=== PATIENT | male | born 1970 | race Caucasian/White ===

== ENCOUNTER 2018-08-14 11:42 | Emergency (ER) | payer OTHER ==
--- NOTE | 2018-08-14 12:58 | XRAY Report ---
Reason: trip backwards with fall Procedure Date: 08/14/2018 Accession Number: [id number] / [id number] Procedure: XR - Sacrum/Coccyx CPT Code: FULL RESULT: EXAM: SACRUM AND COCCYX RADIOGRAPHY EXAM DATE: 08/14/2018 12:45 PM. HISTORY: Trip backwards with fall. COMPARISONS: None. TECHNIQUE: 2 views. FINDINGS: Alignment: No dislocation. Expected segmentation of the coccyx. Pelvic ring appears intact. Arcuate lines are intact. Grade 1/2 anterolisthesis of L5 and S1. Bones: Focal angulation of the lower sacrum above the sacrococcygeal junction is noted. Findings may represent a fracture along the S4/S5 segment. L5 pars interarticularis defects. Joints: Mild degenerative changes. Degenerative changes of the lower lumbar spine greatest at L5-S1. Soft Tissues: Unremarkable. IMPRESSION: 1. Focal angulation of the lower sacrum at approximately S4/S5 segment. Findings may represent variant anatomy versus nondisplaced fracture. If further detail is warranted then consider CT or MRI. [facility]
--- NOTE | 2018-08-14 13:40 | ED Physician Documentation ---
PD HPI BACK INJURY - Stated complaint Stated Complaint: LOWER BACK PX - History obtained from History obtained from: Patient - History of Present Illness Location: Lower Type of injury: Fall Where injury occurred: Work Timing - onset: How many days ago (3) Timing - duration: Days (3) Timing - details: Abrupt onset, Still present Quality: Pain, Spasm, Sharp Improved by: Rest, Immobilization Worsened by: No: Moving, Palpating Associated symptoms: No: Fever, Weakness, Numbness, Incontinent of urine, Unable to urinate, Hematuria, Incontinent of stool Contributing factors: No: Anticoagulated Similar symptoms before: Has not had sx before Recently seen: Not recently seen - Additional information Additional information: 48-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 He heard a crack and he has pain in the buttocks and is not able to sit without severe pain. Review of Systems Constitutional: denies: Fever Eyes: denies: Decreased vision Ears: denies: Ear pain Nose: denies: Congestion Throat: denies: Sore throat Cardiac: denies: Chest pain / pressure Respiratory: denies: Dyspnea, Cough GI: denies: Abdominal Pain, Nausea, Vomiting : denies: Dysuria PD PAST MEDICAL HISTORY - Past Medical History Cardiovascular: Deep vein thrombosis - Past Surgical History Past Surgical History: No - Present Medications Home Medications: Ambulatory Orders Medication Instructions Recorded Confirmed Methocarbamol [Robaxin] 750 mg PO Q6H PRN #25 tablet 11/11/14 Oxycodone HCl/Acetaminophen 1 - 2 each PO Q6H PRN #14 tablet 08/14/18 [Percocet 5-325 mg Tablet] - Allergies Allergies/Adverse Reactions: Allergies Allergy/AdvReac Type Severity Reaction Status Date / Time No Known Drug Allergies Allergy Verified 08/14/18 11:50 - Social History Does the pt smoke?: No Smoking Status: Never smoker Does the pt drink ETOH?: Yes - POLST Patient has POLST: No PD ED PE NORMAL - Vitals Vital signs reviewed: Yes - General General: Alert and oriented X 3, No acute distress, Well developed/nourished - HEENT HEENT: Atraumatic, PERRL, EOMI - Neck Neck: Supple, no meningeal sign - Respiratory Respiratory: No respiratory distress - Back Back: No CVA TTP, Other (There is paraspinous point tenderness to the lower lumbar spine and there is point tenderness to the sacrum and coccyx. ) - Derm Derm: Normal color, Warm and dry, No rash - Extremities Extremities: No deformity, No edema - Neuro Neuro: Alert and oriented X 3, manager etl 2-12 intact, No motor deficit, No sensory deficit, Normal speech Eye Opening: Spontaneous Motor: Obeys Commands Verbal: Oriented GCS Score: 15 - Psych Psych: Normal mood, Normal affect Results - Vitals Vitals: Vital Signs - 24 hr 08/14/18 11:48 Temperature 36.2 C L Heart Rate 89 Respiratory 14 Rate Blood Pressure 149/100 H O2 Saturation 95 Oxygen O2 Source Room air - Rads (name of study) sacrum and coccyx Radiology: Prelim report reviewed (Impression: 1. Focal angulation of the lower sacrum to approximately S4-S5 segment. Findings may represent variant anatomy versus nondisplaced fracture. If further details warranted then consider CT or MRI.), EMP read indepedently, See rad report PD MEDICAL DECISION MAKING - ED course Complexity details: reviewed results, re-evaluated patient, considered differential, d/w patient ED course: 48-year-old male with a fall onto his buttocks has a coccyx fracture he has some pain with especially when he is sitting. I have taken him off work for 1 week we will give him some pain medication and he will follow-up with orthopedics. Departure - Departure Disposition: 01 Home, Self Care Clinical Impression: Fractured coccyx Qualifiers: Encounter type: initial encounter Fracture type: closed Qualified Code(s): S32.2XXA - Fracture of coccyx, initial encounter for closed fracture Condition: Stable Instructions: ED Fx Coccyx Follow-Up: NERY WHITE MD [Primary Care Provider] - Prescriptions: Oxycodone HCl/Acetaminophen [Percocet 5-325 mg Tablet] 1 - 2 each PO Q6H PRN #14 tablet PRN Reason: pain Forms: Activity restrictions
[2018-08-14 14:26] VITALS: BP 149/99
== END 2018-08-14 14:26 | disposition home or self-care (01) ==
LOC: ED 11:42
DX: S32.2XXA Fracture of coccyx, initial encounter for closed fracture (principal); W01.0XXA Fall on same level from slipping, tripping and stumbling without subsequent striking against object, initial encounter; Y93.89 Activity, other specified; Y99.0 Civilian activity done for income or pay; Z86.718 Personal history of other venous thrombosis and embolism
CPT/HCPCS: 72220; 99283

== ENCOUNTER 2020-08-06 19:34 | Outpatient (CLI) | payer OTHER ==
--- NOTE | 2020-08-06 22:12 | Ultrasound Report ---
PROCEDURE: Duplex Ext Veins Bilateral INDICATIONS: Bilateral leg pain. History of remote deep venous thrombosis. Factor V Leiden deficienc y. TECHNIQUE: Real-time imaging, as well as color and pulse Doppler interrogation, were performed of the deep veins of both legs from the inguinal ligament to the popliteal fossa. COMPARISON: None. FINDINGS: The left-sided deep veins are normally compressible, and free of intraluminal thrombus. C olor and pulse Doppler demonstrate normal phasic intravascular flow. There is normal augmentation re sponse to distal compression maneuver. Calf veins on the left were not well visualized. On the right, there is nonocclusive thrombus identified in the distal femoral vein extending to the p opliteal vein. Right-sided calf veins were not well visualized. IMPRESSION: 1. Nonocclusive thrombus identified in the right distal femoral vein through the level of the poplite al vein. 2. Left lower extremity without acute deep venous thrombosis. Findings were reported to Dr. Stephen by the line dancer at time of image completion. Reviewed by: Yevgeniy Martin MD on 08/06/2020 10:11 PM PDT Approved by: Yevgeniy Martin MD on 08/06/2020 10:11 PM PDT Station ID: [id number]
== END 2020-08-06 19:35 | disposition home or self-care (01) ==
LOC: DI 19:34
PROVIDERS: ATTEND Family Medicine
DX: M79.604 Pain in right leg (principal); I82.411 Acute embolism and thrombosis of right femoral vein; I82.431 Acute embolism and thrombosis of right popliteal vein; M79.605 Pain in left leg; Z86.718 Personal history of other venous thrombosis and embolism
CPT/HCPCS: 93970

== ENCOUNTER 2020-12-25 07:18 | Outpatient (CLI) | payer OTHER ==
[2020-12-25 16:27] LABS: BASOPHILS % (AUTO) 0.6 %; EOSINOPHILS # (AUTO) 0.1 10^3/uL (0.0-0.7); EOSINOPHILS % (AUTO) 0.9 %; HCT - HEMATOCRIT 58.7 % (42.0-52.0); HGB - HEMOGLOBIN 18.3 g/dL (14.0-18.0); LYMPHOCYTES # (AUTO) 1.6 10^3/uL (1.5-3.5); LYMPHOCYTES % (AUTO) 23.6 %; MEAN CORPUSCULAR HEMOGLOBIN 28.2 pg (27.0-31.0); MEAN CORPUSCULAR HGB CONC 31.2 g/dL (32.0-36.0); MEAN CORPUSCULAR VOLUME 90.3 fL (80.0-94.0); MEAN PLATELET VOLUME 10.1 fL (7.4-11.4); MONOCYTES # (AUTO) 0.6 10^3/uL (0.0-1.0); MONOCYTES % (AUTO) 8.3 %; NEUTROPHILS # (AUTO) 4.5 10^3/uL (1.5-6.6); NEUTROPHILS % (AUTO) 65.9 %; PLT - PLATELET COUNT 214 10^3/uL (130-450); RED CELL DISTRIBUTION WIDTH 15.3 % (12.0-15.0); WHITE BLOOD COUNT 6.8 x10^3/uL (4.8-10.8)
[2020-12-25 16:49] LABS: % IRON SATURATION 43 % (20-50); ALBUMIN 4.3 g/dL (3.2-5.5); ALBUMIN/GLOBULIN RATIO 1.5 (1.0-2.2); ALKALINE PHOSPHATASE 36 IU/L (42-121); ALT ALANINE AMINOTRANSFERASE 64 IU/L (10-60); AST ASPARTATE AMINOTRANSFERASE 36 IU/L (10-42); BILIRUBIN,TOTAL 1.5 mg/dL (0.2-1.0); BUN - BLOOD UREA NITROGEN 19 mg/dL (6-20); CARBON DIOXIDE - CO2 26 mmol/L (21-32); CHLORIDE 100 mmol/L (101-111); CHOL/HDL RATIO 4.6 (<5.0); CHOLESTEROL 144 mg/dL; GFR - MDRD 79 (>89); GLUCOSE 102 mg/dL (70-100); HDL CHOLESTEROL 31 mg/dL; IRON 136 ug/dL (45-182); LDL CHOLESTEROL,CALCULATED 93 mg/dL; POTASSIUM 4.5 mmol/L (3.5-5.0); SODIUM 134 mmol/L (135-145); TOTAL IRON BINDING CAPACITY 314 ug/dL (250-450); TOTAL PROTEIN 7.1 g/dL (6.7-8.2); TRANSFERRIN 224 mg/dL (180-329); TRIGLYCERIDES 102 mg/dL; VLDL CHOLESTEROL 20 mg/dL
[2020-12-25 16:58] LABS: THYROID STIMULATING HORMONE 1.25 uIU/mL (0.34-5.60)
[2020-12-25 17:00] LABS: FREE T4 (FREE THYROXINE) 0.73 ng/dL (0.58-1.64)
[2020-12-25 17:01] LABS: FREE T3 4.05 pg/mL (2.5-3.9)
[2020-12-25 17:07] LABS: FERRITIN 76.8 ng/mL (23.9-336.2)
[2020-12-25 17:09] LABS: FOLATE 16.96 ng/mL (5.90 - >24.8)
[2020-12-25 17:27] LABS: LUTEINIZING HORMONE < 0.20 mIU/mL
[2020-12-25 17:42] LABS: PSA FREE 0.108 ng/mL (0.16-2.81)
[2020-12-25 17:43] LABS: PSA TOTAL 0.354 ng/mL (0.000-2.000)
[2020-12-25 21:24] LABS: ESTIMATED AVERAGE GLUCOSE 117 mg/dL (70-100); HEMOGLOBIN A1c% 5.7 % (4.27-6.07)
[2020-12-26 04:11] LABS: PROGESTERONE <0.5 ng/mL (<1.4)
[2020-12-26 04:41] LABS: ESTRADIOL 48 pg/mL (< OR = 39)
[2020-12-28 21:36] LABS: DIHYDROTESTOSTERONE 31 ng/dL (12-65)
[2020-12-29 15:11] LABS: DHEA SULFATE 89 mcg/dL (70-495)
== END 2020-12-25 07:19 | disposition home or self-care (01) ==
LOC: LAB.S 07:18
DX: R53.83 Other fatigue (principal); E29.1 Testicular hypofunction; D75.1 Secondary polycythemia; D51.0 Vitamin B12 deficiency anemia due to intrinsic factor deficiency; E34.9 Endocrine disorder, unspecified; R89.1 Abnormal level of hormones in specimens from other organs, systems and tissues; E55.9 Vitamin D deficiency, unspecified; E01.8 Other iodine-deficiency related thyroid disorders and allied conditions; Z13.1 Encounter for screening for diabetes mellitus; Z13.220 Encounter for screening for lipoid disorders
CPT/HCPCS: 36415; 80053; 80061; 80069; 80327; 81003; 81599; 82306; 82570; 82607; 82627; 82670; 82728; 82746; 83002; 83036; 83525; 83540; 83721; 83789; 83970; 84144; 84153; 84154; 84156; 84270; 84305; 84402; 84403; 84439; 84443; 84466; 84481; 85025; 86376; 86900; 86901

== ENCOUNTER 2021-03-06 08:41 | Outpatient (CLI) | payer OTHER ==
[2021-03-06 14:26] LABS: ESTIMATED AVERAGE GLUCOSE 108 mg/dL (70-100); HEMOGLOBIN A1c% 5.4 % (4.27-6.07)
[2021-03-06 14:40] LABS: ALBUMIN/GLOBULIN RATIO 1.7 (1.0-2.2); ALKALINE PHOSPHATASE 33 IU/L (42-121); ALT ALANINE AMINOTRANSFERASE 36 IU/L (10-60); AST ASPARTATE AMINOTRANSFERASE 36 IU/L (10-42); BUN - BLOOD UREA NITROGEN 15 mg/dL (6-20); CALCIUM 8.8 mg/dL (8.5-10.3); CARBON DIOXIDE - CO2 26 mmol/L (21-32); CHLORIDE 101 mmol/L (101-111); CHOL/HDL RATIO 3.9 (<5.0); CHOLESTEROL 131 mg/dL; CREATININE 0.9 mg/dL (0.6-1.2); GFR - MDRD 90 (>89); GLUCOSE 93 mg/dL (70-100); HDL CHOLESTEROL 34 mg/dL; LDL CHOLESTEROL,CALCULATED 86 mg/dL; LDL/HDL RATIO 2.5 (<3.6); POTASSIUM 4.2 mmol/L (3.5-5.0); SODIUM 136 mmol/L (135-145); TOTAL PROTEIN 6.4 g/dL (6.7-8.2); TRIGLYCERIDES 53 mg/dL; VLDL CHOLESTEROL 11 mg/dL
[2021-03-06 15:03] LABS: BASOPHILS % (AUTO) 0.5 %; EOSINOPHILS # (AUTO) 0.1 10^3/uL (0.0-0.7); HCT - HEMATOCRIT 51.5 % (42.0-52.0); HGB - HEMOGLOBIN 16.1 g/dL (14.0-18.0); LYMPHOCYTES # (AUTO) 1.3 10^3/uL (1.5-3.5); LYMPHOCYTES % (AUTO) 22.3 %; MEAN CORPUSCULAR HEMOGLOBIN 28.6 pg (27.0-31.0); MEAN CORPUSCULAR HGB CONC 31.3 g/dL (32.0-36.0); MEAN CORPUSCULAR VOLUME 91.5 fL (80.0-94.0); MEAN PLATELET VOLUME 10.3 fL (7.4-11.4); MONOCYTES # (AUTO) 0.5 10^3/uL (0.0-1.0); MONOCYTES % (AUTO) 8.9 %; NEUTROPHILS # (AUTO) 3.9 10^3/uL (1.5-6.6); NEUTROPHILS % (AUTO) 65.8 %; PLT - PLATELET COUNT 214 10^3/uL (130-450); RED BLOOD COUNT 5.63 10^6/uL (4.70-6.10); RED CELL DISTRIBUTION WIDTH 15.4 % (12.0-15.0); WHITE BLOOD COUNT 5.9 x10^3/uL (4.8-10.8)
== END 2021-03-06 08:42 | disposition home or self-care (01) ==
LOC: LAB.S 08:41
PROVIDERS: ATTEND Family Medicine
DX: Z00.00 Encounter for general adult medical examination without abnormal findings (principal); E66.9 Obesity, unspecified; E29.1 Testicular hypofunction; Z13.220 Encounter for screening for lipoid disorders; Z12.5 Encounter for screening for malignant neoplasm of prostate
CPT/HCPCS: 36415; 80053; 80061; 81599; 82670; 83036; 83721; 84153; 84402; 84403; 85025

== ENCOUNTER 2021-05-20 07:23 | Outpatient (CLI) | payer OTHER | END 2021-05-20 07:24 | disposition home or self-care (01) | LOC: LAB.S 07:23 | PROVIDERS: ATTEND Family Medicine | DX: E29.1 Testicular hypofunction (principal); R53.83 Other fatigue | CPT/HCPCS: 36415; 81599; 82607; 82670; 84270; 84402; 84403 ==

== ENCOUNTER 2023-06-17 08:00 | Outpatient (CLI) | payer OTHER ==
--- NOTE | 2023-06-17 15:27 | XRAY Report ---
PROCEDURE: Chest 2V INDICATIONS: OCCUPATIONAL RISK FOR LUNG CA TECHNIQUE: 2 views of the chest were acquired. COMPARISON: None. FINDINGS: Surgical changes and devices: None. Lungs and pleura: No pleural effusions or pneumothorax. Lungs are clear. Mediastinum: Mediastinal contours appear normal. Heart size is normal. Bones and chest wall: No suspicious bony lesions. Overlying soft tissues appear unremarkable. IMPRESSION: No acute cardiopulmonary process. Reviewed by: Ludivina High MD on 06/17/2023 3:26 PM PST Approved by: Ludivina High MD on 06/17/2023 3:26 PM PST Station ID: [id number]
== END 2023-06-17 23:59 | disposition home or self-care (01) ==
LOC: DI.S 08:00
PROVIDERS: ATTEND Family Medicine
DX: Z12.2 Encounter for screening for malignant neoplasm of respiratory organs (principal)